=== PATIENT | male | born 1965 | race Caucasian/White ===

== ENCOUNTER 2018-05-20 16:59 | Emergency (ER) | payer BC, OTHER ==
[2018-05-20] MEDS ORDERED: HYDROmorphone HCL INJ 2 MG/ML VIAL IM ONE (17:16)
[2018-05-20] MEDS ORDERED: KETOROLAC TROMETHAMINE INJ 60 MG/2 ML VIAL IM ONE (17:17)
--- NOTE | 2018-05-20 17:20 | ED.PDOC ---
History of Present Illness - General Chief Complaint: General Stated Complaint: Bilat knee discomfort Time Seen by Provider: 05/20/18 17:16 Source: patient, family Exam Limitations: no limitations - History of Present Illness Initial Comments: awoke yesterday with increased pain in L knee. Denies trauma. Has severe arthritis in both knees. Pt is visiting from [place]. Takes [place] for pain , but it's not helpingT Timing/Duration: 24 hours Severity: severe Improving Factors: nothing Worsening Factors: movement Associated Symptoms: denies symptoms Allergies/Adverse Reactions: Allergies Penicillins Allergy (Verified 05/20/18 17:01) Rash Home Medications: Ambulatory Orders Indomethacin 50 mg PO TID #30 cap 05/20/18 Review of Systems - Review of Systems Constitutional: Denies: chills, fever EENTM: States: no symptoms reported Respiratory: States: no symptoms reported Cardiology: States: no symptoms reported Gastrointestinal/Abdominal: States: no symptoms reported Genitourinary: States: no symptoms reported Musculoskeletal: States: joint pain, joint swelling Skin: Denies: change in color, rash Neurological: Denies: numbness, paresthesia Endocrine: Denies: no symptoms reported Hematologic/Lymphatic: States: no symptoms reported Past Medical History (General) - Patient Medical History Hx Stroke: No Hx Congestive Heart Failure: No Hx Hypertension: Yes Hx Diabetes: Yes - Vaccination History Hx Influenza Vaccination: No - 2016 Hx Pneumococcal Vaccination: Yes - 2014 - Social History Hx Tobacco Use: No Hx Alcohol Use: Yes - "very little" Family Medical History - Family History Father Family History: No Known Living Status: Cause of : An accident Physical Exam - Physical Exam General Appearance: Alert, Obvious distress Extremity: no pedal edema, no calf tenderness, other - Bilateral suprapatellar effusions without erythema or increased heat. Decreased ROM from pain Neurologic: alert, normal mood/affect, oriented x 3 Skin Exam: normal color, warm/dry Departure - Departure Clinical Impression: Osteoarthritis of knees, bilateral Qualifiers: Osteoarthritis type: primary Qualified Code(s): M17.0 - Bilateral primary osteoarthritis of knee Disposition: Discharge to Home or Self Care Departure Forms: ED Discharge - Pt. Copy, Patient Portal Self Enrollment Prescriptions: Indomethacin 50 mg PO TID #30 cap Home Medications: Ambulatory Orders Indomethacin 50 mg PO TID #30 cap 05/20/18
--- NOTE | 2018-05-20 18:37 | RAD ---
EXAM DESCRIPTION: Knee,Left 2 or More Views CLINICAL HISTORY: 53 years Male, painful knee COMPARISON: None. FINDINGS: Recommend osteoarthrosis with moderate joint space loss and osteophyte formation. Possible small joint effusion. No fracture or dislocation. Soft tissues are unremarkable. IMPRESSION: No acute osseous abnormality. Moderate knee osteoarthrosis. Possible small joint effusion. Electronically signed by: Nicholas Weiss MD 05/20/2018 6:36 PM CDT
[2018-05-20 18:58] VITALS: BP 96/71; TEMP 98.6; O2SAT 96
== END 2018-05-20 18:58 | disposition home or self-care (01) ==
LOC: ER 16:59
DX: M17.0 Bilateral primary osteoarthritis of knee (principal); Z88.0 Allergy status to penicillin
CPT/HCPCS: 73560; J1170; J1885

== ENCOUNTER → 2020-03-10 | Outpatient (CLI) | payer BC, OTHER ==
--- NOTE | 2020-03-10 13:57 | RAD ---
EXAM DESCRIPTION: Pelvis, single view CLINICAL HISTORY: HIP PAIN FINDINGS/ IMPRESSION: Nonspherical femoral head neck junction predisposing to femoroacetabular impingement. Mild joint space narrowing. No fracture. No advanced arthrosis or focal osteochondral lesion Normal mineralization. Normal sacral neural foraminal lines Electronically signed by: Oumar Mya MD 03/10/2020 1:55 PM CDT
--- NOTE | 2020-03-10 14:00 | RAD ---
EXAM DESCRIPTION: Left knee, 3 radiographs CLINICAL HISTORY: PAIN IN LEFT KNEE FINDINGS/ IMPRESSION: Severe lateral femorotibial osteoarthritis with [id number] contact, mild remodeling and prominent joint line osteophytes. Small marginal osteophytes medial femorotibial and patellofemoral. Moderate joint effusion Normal mineralization. No fracture Electronically signed by: Oumar May MD 03/10/2020 1:58 PM CDT
--- NOTE | 2020-03-10 14:02 | RAD ---
EXAM DESCRIPTION: Right knee, 4 radiographs CLINICAL HISTORY: PAIN IN RIGHT KNEE FINDINGS/ IMPRESSION: Severe medial femorotibial osteoarthritis with [id number] contact. Scalloped remodeling of the tibia. Varus deformity at the knee. Large loose body along the inferior medial gutter measuring about 9 mm. Lateral femorotibial and patellofemoral marginal osteophytes with a couple of loose bodies along the lateral joint line. Moderate suprapatellar joint effusion No fracture Electronically signed by: Oumar May MD 03/10/2020 2:00 PM CDT
== END ==
LOC: RAD 10:15
PROVIDERS: ATTEND Orthopaedic Surgery
DX: M25.859 Other specified joint disorders, unspecified hip (principal); M17.0 Bilateral primary osteoarthritis of knee; M21.161 Varus deformity, not elsewhere classified, right knee; M25.761 Osteophyte, right knee; M25.762 Osteophyte, left knee; M25.461 Effusion, right knee; M25.462 Effusion, left knee; M25.551 Pain in right hip; M25.552 Pain in left hip

== ENCOUNTER → 2020-05-08 | Outpatient (CLI) | payer OTHER ==
--- NOTE | 2020-05-08 11:27 | RAD ---
EXAM DESCRIPTION: Femur,Right CLINICAL HISTORY: 55 years Male, THIGH PAIN COMPARISON: None. Findings: Four view(s)/radiograph(s) Mild/moderate right hip arthropathy. Severe right knee osteoarthritis. No acute fracture or dislocation. No focal soft tissue swelling. IMPRESSION: No acute osseous abnormality in the right femur. Electronically signed by: Santi Vergara MD 05/08/2020 11:25 AM CDT
== END ==
LOC: RAD 09:43
PROVIDERS: ATTEND Orthopaedic Surgery
DX: M79.651 Pain in right thigh (principal)

== ENCOUNTER 2020-05-15 05:49 | Inpatient (IN) | payer OTHER ==
[2020-05-15] MEDS ORDERED: SODIUM CHL 0.9% 100ML MINI-BAG 100 ML IVPB ONE (05:56)
[2020-05-15] MEDS ORDERED: LACTATED RINGERS 1,000 ML ONE (05:57)
[2020-05-15] MEDS ORDERED: SODIUM CHLORIDE 0.9% (FLUSH) 10 ML SYG ONE (05:57)
[2020-05-15] MEDS ORDERED: TRANEXAMIC ACID 1,000 MG/10 ML VIAL ONE (05:57)
[2020-05-15] MEDS ORDERED: ceFAZolin SODIUM 1 GM VIAL ONE (05:57)
[2020-05-15] MEDS ORDERED: SODIUM CHLORIDE 0.9% 100ML 100 ML IVPB ONE (05:57)
[2020-05-15] MEDS ORDERED: SODIUM CHLORIDE 0.9% 250ML 250 ML ONE (05:57)
[2020-05-15] MEDS ORDERED: VANCOMYCIN HCL INJ 1,000 MG VIAL IVPB ONE ×2 (05:58→06:46)
[2020-05-15] MEDS ORDERED: HYDROmorphone HCL INJ 2 MG/ML VIAL ONE (06:30)
[2020-05-15] MEDS ORDERED: MIDAZOLAM INJ 5 MG/5 ML VIAL ONE (06:30)
[2020-05-15] MEDS ORDERED: FAMOTIDINE INJ 10 MG/ML VIAL IV ONE (06:31)
[2020-05-15] MEDS ORDERED: LACTATED RINGERS 1,000 ML IVS ONE (06:35)
[2020-05-15] MEDS ORDERED: TRANEXAMIC ACID 1,000 MG/10 ML VIAL IV ONE ×2 (06:35→09:47)
[2020-05-15] MEDS ORDERED: PROMETHAZINE HCL INJ 25 MG in SODIUM CHLORIDE 0.9% 50ML 50 ML IVPB PRN (06:57)
[2020-05-15] MEDS ORDERED: BISACODYL SUPPOSITORY 10 MG PR PRN (06:57)
[2020-05-15] MEDS ORDERED: MORPHINE SULFATE INJ 10 MG/ML VIAL IV PRN (06:57)
[2020-05-15] MEDS ORDERED: TRANEXAMIC ACID INJ 1,000 MG in SODIUM CHLORIDE 0.9% 100ML 100 ML IVPB ONE (06:57)
[2020-05-15] MEDS ORDERED: ZOLPIDEM TARTRATE 5 MG TAB PO PRN (06:57)
[2020-05-15] MEDS ORDERED: SODIUM CHLORIDE 0.9% (FLUSH) 10 ML SYG IV PRN (06:57)
[2020-05-15] MEDS ORDERED: ONDANSETRON INJ 4 MG/2 ML VIAL IV PRN (06:57)
[2020-05-15] MEDS ORDERED: PROMETHAZINE HCL INJ 12.5 MG in SODIUM CHLORIDE 0.9% 50ML 50 ML IVPB PRN (06:57)
[2020-05-15] MEDS ORDERED: BENZOCAINE-MENTH LOZ (CEPACOL) 1 EA LOZ MT PRN (06:57)
[2020-05-15] MEDS ORDERED: TEMAZEPAM 15 MG CAP PO PRN (06:57)
[2020-05-15] MEDS ORDERED: ACETAMINOPHEN 325 MG TAB PO PRN (06:57)
[2020-05-15] MEDS ORDERED: MAGNESIUM HYDROXIDE 30 ML UD PO PRN (06:57)
[2020-05-15] MEDS ORDERED: ACETAMINOPHEN 500 MG TAB PO PRN (06:57)
[2020-05-15] MEDS ORDERED: ALUMINUM & MAGNESIUM HYDROXIDE 30 ML UD PO PRN (06:57)
[2020-05-15] MEDS ORDERED: MORPHINE SULFATE INJ 10 MG/ML VIAL IM PRN (06:57)
[2020-05-15] MEDS ORDERED: DEX 5% W/NACL 0.45% 1000ML 1,000 ML IVS PRN (06:57)
[2020-05-15] MEDS ORDERED: NALOXONE HCL INJ 0.4 MG/ML VIAL IV PRN (06:57)
[2020-05-15] MEDS ORDERED: DEXAMETHASONE INJ 10 MG/ML VIAL ONE (07:00)
[2020-05-15] MEDS ORDERED: SODIUM CHLORIDE 0.9% 50 ML VIAL ONE (07:00)
[2020-05-15] MEDS ORDERED: METOPROLOL TARTRATE INJ 5 MG/5 ML VIAL IV ONE (07:00)
[2020-05-15] MEDS ORDERED: PROPOFOL 200 MG/20 ML VIAL IV ONE (07:00)
[2020-05-15] MEDS ORDERED: MAGNESIUM SULFATE INJ 1 GM/2 ML VIAL ONE ×2 (07:00)
[2020-05-15] MEDS ORDERED: EPINEPHrine HCL AMP 1 MG/ML AMP ONE (07:00)
[2020-05-15] MEDS ORDERED: MORPHINE PCA 1 MG/ML 100 ML BAG IVPB SCH (07:00)
[2020-05-15] MEDS: ceFAZolin SODIUM 1 GM VIAL ONE ×3 (07:44→09:12)
[2020-05-15] MEDS: BUPIVACAINE LIPOSOME 13.3 MG/ML VIAL INJ ONE ×2 (07:44→09:00)
[2020-05-15] MEDS: BUPIVACAINE 0.5% 30 ML VIAL INJ ONE ×2 (07:44→09:00)
[2020-05-15] MEDS: VANCOMYCIN HCL INJ 1,000 MG VIAL IVPB ONE ×2 (07:45→09:12)
[2020-05-15] MEDS ORDERED: ELECTROLYTE-A 1,000 ML IVS ONE (08:04)
[2020-05-15] MEDS ORDERED: ACETAMINOPHEN IV 1000MG 100 ML ONE (08:38)
[2020-05-15] MEDS ORDERED: DEXMEDETOMIDINE HCL 200 MCG/2 ML INJ IV ONE (08:41)
[2020-05-15] MEDS ORDERED: CADD ADMIN SET 1 EA PKG INJ ONE ×2 (10:06→23:38)
[2020-05-15] MEDS ORDERED: MORPHINE PCA 1 MG/ML 100 ML BAG IVPB ONE (10:15)
[2020-05-15] MEDS: IV SET AND CAP CHANGE INJ INJ SCH (11:32)
[2020-05-15] MEDS: CELECOXIB 100 MG CAP PO SCH ×2 (11:33→18:00)
[2020-05-15] MEDS: MAGNESIUM OXIDE 400 MG TAB PO SCH (11:33)
[2020-05-15] MEDS ORDERED: GLUCAGON INJ 1 MG VIAL SUBCU PRN (11:36)
[2020-05-15] MEDS ORDERED: DEXTROSE 50% 25 GM/50 ML SYG IV PRN (11:36)
--- NOTE | 2020-05-15 11:51 | RAD ---
EXAM DESCRIPTION: Fluoroscopy Up to 1Hr CLINICAL HISTORY: 55 years Male, RIGHT TKA COMPARISON: None. TECHNIQUE: Operative C-arm was utilized for total knee replacement of the right knee. A single image is submitted for review with a fluoroscopic time of 5.3 seconds and dose of 0.90 mGy FINDINGS: Single view submitted demonstrates a right total knee replacement in place with radiopaque metallic femoral and tibial components applied to the underlying bony matrix. No gross evidence of periprosthetic fracture noted. IMPRESSION: Satisfactory right total hip replacement. Electronically signed by: Oumar Gallegos MD 05/15/2020 11:49 AM CDT
[2020-05-15] MEDS: CYCLOBENZAPRINE HCL 10 MG TAB PO PRN ×2 (12:46→20:56)
[2020-05-15] MEDS: HYDROcodone 5MG/APAP 325MG 1 EA TAB PO PRN ×2 (12:46→18:00)
--- NOTE | 2020-05-15 14:10 | RAD ---
EXAM: Knee,Right 1 or 2 Views CLINICAL HISTORY: TKA COMPARISON STUDY: None. TECHNICAL: 2 views of the knee. FINDINGS: Views of the knee demonstrate no fracture or dislocation. A right knee arthroplasty is seated and in alignment. There is no acute bone abnormality. Postoperative changes are noted. IMPRESSION: Right knee arthroplasty in alignment without acute fracture. Electronically signed by: Jam Pham MD 05/15/2020 2:08 PM CDT
[2020-05-15] MEDS ORDERED: LISINOPRIL 10 MG TAB PO ONE (15:37)
[2020-05-15] MEDS ORDERED: LISINOPRIL 10 MG TAB ONE (15:41)
[2020-05-15] MEDS: ceFAZolin SODIUM 2 GM in SODIUM CHL 0.9% 50ML MIN-BAG+ 50 ML IVPB SCH ×2 (15:53→23:54)
[2020-05-15] MEDS: INSULIN LISPRO 100 UNITS/ML PEN SUBCU SCH ×2 (17:32→20:55)
[2020-05-15] MEDS: VANCOMYCIN HCL INJ 1,000 MG in SODIUM CHLORIDE 0.9% 250ML 250 ML IVPB SCH (18:00)
--- NOTE | 2020-05-15 20:05 | CONS ---
SUPERVISING PHYSICIAN: Deo Rod M.D. DATE OF CONSULTATION: 05/15/20 REASON FOR CONSULTATION: Medical management postoperative total right knee arthroplasty. HISTORY OF PRESENT ILLNESS: Mr. Bhatia is a 55 year-old male patient with a longstanding history of right knee pain. He has had multiple attempts as an outpatient at conservative treatment measures to control the pain, however has not received any significant relief. He felt that he has not gotten any outpatient management to successfully relief his pain. He has requested operative intervention the form of a total knee arthroplasty performed by Dr. Eze Caballero. He was admitted today for an elective total right knee arthroplasty. He had no intraoperative complications and was seen in the immediate postoperative state to assist with medical management of chronic illnesses, including hypertension and diabetes. PAST MEDICAL HISTORY: 1. Hypertension. 2. Diabetes mellitus type 2 on oral therapy. PAST SURGICAL HISTORY: 1. Shoulder arthroscopy. 2. Open reduction of fracture of femur right side in 1981. HOME MEDICATIONS: 1. Celebrex 200 mg daily. 2. Hydrocodone 10/325 one tablet as needed for pain. 3. Metformin 500 mg b.i.d. 4. Lisinopril 20/12.5 mg Hydrochlorothiazide 1 tablet daily. 5. Vascepa 1 capsule b.i.d. 6. Pravachol 20 mg daily. ALLERGIES: PENICILLINS. FAMILY HISTORY: Noncontributory. SOCIAL HISTORY: The patient lives in [place], [place]. He is . Self employed. He currently utilizes smokeless tobacco but does not drink or use illicit drugs. REVIEW OF SYSTEMS: CONSTITUTIONAL: Denies any fevers, chills, general malaise, body aches or unintentional weight loss. HEENT: Denies any headaches, vision changes, sore throat, nasal congestion. RESPIRATORY: Denies any coughing, wheezing or shortness of breath. CARDIOVASCULAR: Denies any chest pains, palpitations, syncopal episodes or peripheral edema. GASTROINTESTINAL: Denies any nausea, vomiting, diarrhea, constipation or abdominal pain. GENITOURINARY: Denies any dysuria, hematuria, polyuria. EXTREMITIES: As per History of Present Illness. SKIN: Denies any lesions,rashes, moles or unexplained changes. NEUROLOGIC: Denies any ataxia, seizures, paresthesias or other focal deficits. HEMATOLOGIC: Denies any unexplained bleeding or bruising or transfusion reactions. PHYSICAL EXAMINATION: VITAL SIGNS: Temperature 98.6, pulse 83, blood pressure 128/92, respirations 20, satting 99% on room air. GENERAL: The patient is resting in bed. Currently utilizing the CPM. Does not appear to be in any acute distress. He is alert. HEENT: Tympanic membranes clear bilaterally. Oropharynx is pink, moist without any lesions. NECK: Supple, nontender with full range of motion. No jugular venous distention noted. CHEST: Lung sounds are clear to auscultation bilaterally without any rhonchi, wheezes or rales. HEART: Regular rate and rhythm without any appreciable murmurs, gallops, or rubs. ABDOMEN: Soft, nontender. Hypoactive bowel sounds. EXTREMITIES: Right knee has dressing in place with an Iceman as well. Distally capillary refills were strong, pulses strong bilaterally at 2+. NEUROLOGIC: He is alert and oriented times three. Cranial nerves II-XII are grossly intact. SKIN: Warm, pink and dry. LABORATORY: Postoperative H&H is pending. Postoperative blood sugar was 121. RADIOLOGY: Please see the pre and postoperative radiology reports for details. ASSESSMENT: 1. Chronic right knee pain failing outpatient treatment measures requiring total knee arthroplasty for symptom control. Surgery performed by Dr. Eze Caballero. Postoperative day #0. 2. Chronic hypertension. 3. Diabetes mellitus type 2. PLAN: Will follow Mr. Bhatia postoperatively as he progresses through his physical therapy and rehabilitation efforts. He plans to do his rehab through a facility in [place] with those arrangements still being made. He does report that he snores a lot. Anesthesia reported that he had undiagnosed obstructive sleep apnea. Will watch his O2 saturations closely at night. He is on DVT prophylaxis per protocol. I have got him on insulin sliding scale per protocol. Diet is ADA diet 1800 calorie. He is showing to be a little hypertensive postoperatively. With make sure his pain is controlled and restart his home medications and monitor his blood sugars as well as blood pressures closely. Anticipate length of stay to be at least 24 to 48 hours. Until we can transition him to outpatient management will continue to monitor and treat as needed. [facility][id number] [facility]
[2020-05-15] MEDS: metFORMIN XR 500 MG TAB.ER.24 PO SCH (20:56)
[2020-05-15] MEDS: DOCUSATE CALCIUM 240 MG CAP PO SCH (20:56)
[2020-05-15] MEDS: ICOSAPENT ETHYL PO SCH (20:58)
[2020-05-15] MEDS ORDERED: ENOXAPARIN SODIUM 30 MG/0.3 ML SYG SUBCU ONE (21:00)
[2020-05-15] MEDS ORDERED: HYDROmorphone HCL INJ 2 MG/ML VIAL IV ONE (22:38)
[2020-05-15] MEDS: ENOXAPARIN SODIUM 30 MG/0.3 ML SYG SUBCU SCH (22:44)
[2020-05-15] MEDS ORDERED: HYDROmorphone PCA 0.2 MG/ML 1 BAG BAG IVPB SCH (23:30)
[2020-05-16] MEDS: VANCOMYCIN HCL INJ 1,000 MG in SODIUM CHLORIDE 0.9% 250ML 250 ML IVPB SCH (05:38)
[2020-05-16] MEDS ORDERED: PRAVASTATIN SODIUM 20 MG TAB ONE (07:33)
[2020-05-16] MEDS ORDERED: LISINOPRIL 10 MG TAB ONE (07:34)
[2020-05-16] MEDS ORDERED: hydroCHLOROthiazide 12.5 MG CAP ONE (07:34)
[2020-05-16] MEDS: INSULIN LISPRO 100 UNITS/ML PEN SUBCU SCH ×4 (07:42→21:29)
[2020-05-16] MEDS: ceFAZolin SODIUM 2 GM in SODIUM CHL 0.9% 50ML MIN-BAG+ 50 ML IVPB SCH (07:59)
[2020-05-16] MEDS: LISINOPRIL 10 MG TAB PO SCH (08:25)
[2020-05-16] MEDS: metFORMIN XR 500 MG TAB.ER.24 PO SCH ×2 (08:25→20:49)
[2020-05-16] MEDS: hydroCHLOROthiazide 12.5 MG CAP PO SCH (08:25)
[2020-05-16] MEDS: ICOSAPENT ETHYL PO SCH ×2 (08:26→21:29)
[2020-05-16] MEDS: PRAVASTATIN SODIUM 20 MG TAB PO SCH (08:26)
[2020-05-16] MEDS: CELECOXIB 100 MG CAP PO SCH ×2 (08:26→20:48)
[2020-05-16] MEDS: MAGNESIUM OXIDE 400 MG TAB PO SCH (08:26)
[2020-05-16] MEDS ORDERED: NON-FORMULARY MEDICATION 1 EA MIS (Lisinopril & Hydrochlorothiazi [Lisinopril/Hydrochlorot PO SCH (09:00)
[2020-05-16] MEDS: ENOXAPARIN SODIUM 30 MG/0.3 ML SYG SUBCU SCH (10:33)
[2020-05-16] MEDS: DOCUSATE CALCIUM 240 MG CAP PO SCH (20:49)
[2020-05-17] MEDS: ENOXAPARIN SODIUM 30 MG/0.3 ML SYG SUBCU SCH ×3 (00:36→23:11)
[2020-05-17] MEDS: HYDROcodone 5MG/APAP 325MG 1 EA TAB PO PRN ×5 (01:50→23:22)
[2020-05-17] MEDS: CELECOXIB 100 MG CAP PO SCH ×2 (07:28→17:41)
[2020-05-17] MEDS: INSULIN LISPRO 100 UNITS/ML PEN SUBCU SCH ×4 (08:02→20:40)
[2020-05-17] MEDS: PRAVASTATIN SODIUM 20 MG TAB PO SCH (08:35)
[2020-05-17] MEDS: metFORMIN XR 500 MG TAB.ER.24 PO SCH ×2 (08:35→20:34)
[2020-05-17] MEDS: MAGNESIUM OXIDE 400 MG TAB PO SCH (08:35)
[2020-05-17] MEDS: CYCLOBENZAPRINE HCL 10 MG TAB PO PRN ×2 (08:35→20:35)
[2020-05-17] MEDS: hydroCHLOROthiazide 12.5 MG CAP PO SCH (08:35)
[2020-05-17] MEDS: ICOSAPENT ETHYL PO SCH ×2 (08:36→20:41)
[2020-05-17] MEDS: SODIUM CHLORIDE 0.9% (FLUSH) 10 ML SYG IV SCH ×2 (08:36→20:41)
[2020-05-17] MEDS: LISINOPRIL 10 MG TAB PO SCH (08:36)
--- NOTE | 2020-05-17 09:21 | PN ---
SUPERVISING PHYSICIAN: Liz Rod MD DATE: 05/16/20 SUBJECTIVE: The patient had a little issue with pain control last night and actually required some Dilaudid. Therefore, we switched his morphine PULP GRINDER AND BLENDER, his current one of Dilaudid. He has been doing well since then. He has not had any further complaints of nausea or vomiting. He is doing well with physical therapy. OBJECTIVE: VITAL SIGNS: Temperature 97.8, pulse 88, blood pressure 132/84, respirations 18, saturation 97% on room air. GENERAL: The patient is resting comfortably, does not appear to be in any distress at time of exam. He easily awakens, he is alert. CHEST: Lungs are clear to auscultation bilaterally. HEART: Regular rate and rhythm. ABDOMEN: Soft, nontender. Positive bowel sounds. EXTREMITIES: Right knee remains with a large, bulky dressing in place which is clean and dry. Distal pulses are strong. Capillary is brisk. NEUROLOGIC: Alert and oriented times three. LABORATORY: Postoperative hemoglobin 13, hematocrit 38.1. Blood sugars have been ranging between 126 and 172. ASSESSMENT: 1. Chronic right knee pain failing outpatient treatment measures requiring total knee arthroplasty for symptom control. Surgery performed by Dr. Eze Caballero. Postoperative day #1. 2. Chronic hypertension. 3. Diabetes mellitus, type 2. PLAN: We will continue to followup the patient until discharge. He will continue his physical therapy and rehabilitation efforts. At this point, the plan is to discharge to [place] to continue his physical therapy there. Those arrangements have been made. He does remain on insulin protocol. He is on DVT prophylaxis per protocol. I anticipate discharging him tomorrow or . Until the patient can transition to outpatient management, we will continue to monitor and treat as needed. #[id number] [facility]
--- NOTE | 2020-05-17 10:26 | PN ---
DATE: 05/16/20 SUBJECTIVE: Mr. Bhatia is doing pretty well. He has good pain control right now. OBJECTIVE: Afebrile. Vital signs stable. Dressing is clean, dry and intact. ASSESSMENT: Status post total knee arthroplasty. PLAN: The plan at this point is for him to begin weightbearing as tolerated today. #[id number] [facility]
--- NOTE | 2020-05-17 10:30 | OP ---
DATE OF PROCEDURE: 05/15/20 PREOPERATIVE DIAGNOSIS: 1. Osteoarthritis of the knee. POSTOPERATIVE DIAGNOSIS: 1. Osteoarthritis of the knee. PROCEDURE: 1. Total knee arthroplasty. SURGEON: Eze Caballero MD. VACUUM TANK TENDER: Tian Padilla CST, SA-C. ANESTHESIA: General anesthesia. COMPLICATIONS: None. FINDINGS: Severe arthritis with varus deformity. INDICATION: Mr. Bhatia has a history of severe pain that has been refractory to conservative measures. Because of his ongoing pain, he has requested operative intervention. After discussing the risks, benefits and alternatives to that, the patient has given informed consent for total knee arthroplasty. PROCEDURE: The patient was brought to the Operating Room and placed in supine position. General anesthesia was induced and the patient's leg was sterilely prepped and draped. Following prepping and draping, the distal femur was exposed and using an intramedullary guide, the distal femoral cut was made. The appropriate sized cutting block was measured, pinned into place, and the anterior, posterior, and chamfer cuts were made. The ACL was transected and the tibia was subluxed. Both the medial and lateral menisci were removed. An intramedullary guide was used to make the proximal tibial cut. The appropriate sized base plate was placed and a trial polyethylene was placed. The trial femur was placed, the knee was reduced, and the knee was taken through a range of motion. The knee was stable in anterior, posterior, varus and valgus stress. The patella tracked anatomically without evidence of subluxation or dislocation. After trialing, the trial components were removed and the bony surfaces were thoroughly irrigated with saline. Following irrigation, the surfaces were dried and the final components were cemented into place. The excess cement was removed and the remaining cement was allowed to cure. The knee was again taken through a range of motion to confirm stability. The wound was then irrigated with saline and closure was performed using PDS to approximate the arthrotomy followed by closure of the subcutaneous tissues with a combination of running and interrupted Monocryl sutures. Sterile dressing was placed. The patient was awoken from anesthesia and taken to Recovery. COMPONENTS: [place] Triathlon knee, size 3 femur, size 3 tibia, 13 mm insert. POSTOPERATIVE PLAN: The patient will be weight-bearing as tolerated on postoperative day 1. [id number]
[2020-05-17] MEDS: traMADol HCL 50 MG TAB PO PRN ×2 (11:53→20:35)
[2020-05-17] MEDS: DOCUSATE CALCIUM 240 MG CAP PO SCH (20:41)
[2020-05-18] MEDS: traMADol HCL 50 MG TAB PO PRN (04:19)
[2020-05-18] MEDS: IV SET AND CAP CHANGE INJ INJ SCH (07:21)
[2020-05-18] MEDS: INSULIN LISPRO 100 UNITS/ML PEN SUBCU SCH (07:21)
[2020-05-18] MEDS: HYDROcodone 5MG/APAP 325MG 1 EA TAB PO PRN (07:30)
[2020-05-18] MEDS: CELECOXIB 100 MG CAP PO SCH (07:30)
[2020-05-18] MEDS: metFORMIN XR 500 MG TAB.ER.24 PO SCH (08:04)
[2020-05-18] MEDS: SODIUM CHLORIDE 0.9% (FLUSH) 10 ML SYG IV SCH (08:04)
[2020-05-18] MEDS: PRAVASTATIN SODIUM 20 MG TAB PO SCH (08:05)
[2020-05-18] MEDS: LISINOPRIL 10 MG TAB PO SCH (08:05)
[2020-05-18] MEDS: hydroCHLOROthiazide 12.5 MG CAP PO SCH (08:05)
[2020-05-18] MEDS: MAGNESIUM OXIDE 400 MG TAB PO SCH (08:05)
[2020-05-18] MEDS: ICOSAPENT ETHYL PO SCH (09:47)
--- NOTE | 2020-05-18 11:11 | DS ---
SUPERVISING PHYSICIAN: Liz Rod MD DISCHARGE DIAGNOSIS: 1. Chronic right knee pain failing outpatient treatment measures requiring total knee arthroplasty performed by Dr. Eze Caballero, orthopedic surgeon, postoperative day #3. 2. Chronic hypertension. 3. Diabetes mellitus, type 2. HISTORY OF PRESENT ILLNESS: This is a 55-year-old male patient who has had a significant history of right knee pain. He has failed conservative treatment measures to control the pain and had requested Dr. Eze Caballero, orthopedic surgeon, for operative intervention. He was admitted to the hospital on the day of his surgery. There were no problems intraoperatively. He was seen postoperatively on the Medical/Surgical Floor. HOSPITAL COURSE: The patient was admitted to the hospital and Dr. Caballero's routine postoperative orders were followed. His home medications were restarted. His only concerns were that he had some snoring and may have undiagnosed obstructive sleep apnea. He was on DVT prophylaxis per Dr. Caballero's protocol. He was also on sliding scale insulin protocol. He progressed through his physical therapy without any problems. He will be discharged home today in stable condition. LABORATORY: His postoperative hemoglobin was 13 and hematocrit 38.1. Blood sugars have run between 115 and 197. His UDS was negative except for positive for opiates and he does take hydrocodone at home. RADIOLOGY: Reports are per the EMR. DISCHARGE PLAN: The patient will be discharged home in stable condition. He is to resume his previous diabetic diet and increase his activity per physical therapy. He will have outpatient physical therapy at [facility] [place]. He is to followup with Dr. Caballero as recommended. In addition to his home medications, he will also have 9 days of Xarelto a prescription for Flexeril. He is to return to the hospital or followup with Dr. Caballero for any problems or complications. DISCHARGE MEDICATIONS: 1. Pravastatin. 2. Metformin. 3. Lisinopril/hydrochlorothiazide. 4. Vascepa. 5. Hydrocodone. 6. Celebrex. 7. Cyclobenzaprine. 8. Docusate sodium. 9. Xarelto. #[id number] [facility]
[2020-05-18] MEDS: ENOXAPARIN SODIUM 30 MG/0.3 ML SYG SUBCU SCH (11:17)
[2020-05-18 11:25] VITALS: BP 130/81; TEMP 98.1; O2SAT 98
--- NOTE | 2020-05-18 11:25 | PN ---
DATE: 05/18/20 SUBJECTIVE: Mr. Bhatia is doing well although still is having some pain that is requiring narcotic medication. OBJECTIVE: Afebrile. Vital signs stable. Wound is clean. There are no signs or symptoms of infection. ASSESSMENT: Status post total knee arthroplasty. PLAN: The plan is to continue with weightbearing as tolerated. [facility][id number] [facility]
[2020-05-18] MEDS ORDERED: BISACODYL SUPPOSITORY 10 MG PR ONE (21:00)
[2020-05-18] MEDS ORDERED: MAGNESIUM HYDROXIDE 30 ML UD PO ONE (21:00)
== END 2020-05-18 11:31 | disposition home or self-care (01) | DRG 470 ==
LOC: AMB 05:49 → MS 10:30
PROVIDERS: ADMIT Orthopaedic Surgery; ATTEND Nurse Practitioner Acute Care
PROC: 0SRC0J9 Replacement of Right Knee Joint with Synthetic Substitute, Cemented, Open Approach (ICD-10-PCS; principal; 2020-05-15 06:49)
DX: M17.11 Unilateral primary osteoarthritis, right knee (principal); G89.29 Other chronic pain; G47.33 Obstructive sleep apnea (adult) (pediatric); I10 Essential (primary) hypertension; E11.9 Type 2 diabetes mellitus without complications; F17.290 Nicotine dependence, other tobacco product, uncomplicated; Z79.84 Long term (current) use of oral hypoglycemic drugs; Z88.0 Allergy status to penicillin; Z79.1 Long term (current) use of non-steroidal anti-inflammatories (NSAID); Z79.891 Long term (current) use of opiate analgesic; Z79.899 Other long term (current) drug therapy